=== PATIENT | male | born 1955 | race Caucasian/White ===

== ENCOUNTER 2017-02-07 11:12 | Emergency (ER) | payer MEDICARE, OTHER ==
--- NOTE | ~2017-02-07 | CR63 ---
[facility]. [facility] A Service of [facility] & [facility] RADIOLOGY TEXT RESULTS PATIENT: NOVA BUNN JR LOCATION: SED : 53 UNIT #: [id number] AGE: [address]: Marcel Rodriguez MD SEX: M ORDER DR: [id number] [place] [id number] E MR#: [id number] Acc #: [id number] NAME: NOVA BUNN JR : 1955 SEX: M STUDY DATE/TIME: 02/07/2017 11:47 UNIT: SED ROOM: STUDY DESCRIPTION: CR Chest 2 View Attending Physician: Marcel Rodriguez M.D. Ordering Physician: Marcel Rodriguez M.D. Primary Care Physician: No Primary Care Physician MEDICAL IMAGING REPORT This report is preliminary unless electronic signature is present. EXAM Two-view chest, 02/07/2017. HISTORY Chest pain for 3 days. COMPARISON Chest, 06/29/2010. FINDINGS 2 views of the chest demonstrates clear lungs. No pleural effusion or pneumothorax. Heart size and mediastinum normal. Pulmonary vasculature normal. IMPRESSION Emphysema. No other acute chest findings. Dictated by... Hardy Kuhn M.D. THIS IS AN ELECTRONICALLY VERIFIED REPORT Hardy Kuhn M.D. at 02/08/2017 8:56 AM [email or web address]/[email or web address] TD: 02/07/2017 12:48 JOB #: [id number] MEDICAL IMAGING REPORT Page 1 of 1
[~2017-02-07 11:12] MED LIST: AMOXICILLIN875 MG PO; ANTIVERT PO; ASPIRIN PO; AUGMENTIN PO; BACITRACIN30 GM TOP; CORTISPORIN-TC10 M1 AU; LIPITOR PO; LISINOPRIL10 MG PO; NEXIUM PO; PLAVIX PO; TYLENOL #3 PO; VOLTAREN75 MG PO
== END 2017-02-07 13:35 | disposition home or self-care (01) ==
LOC: SED 11:12
DX: S20.212A Contusion of left front wall of thorax, initial encounter (principal); S20.211A Contusion of right front wall of thorax, initial encounter; W22.8XXA Striking against or struck by other objects, initial encounter; K21.9 Gastro-esophageal reflux disease without esophagitis; Z88.8 Allergy status to other drugs, medicaments and biological substances; F17.210 Nicotine dependence, cigarettes, uncomplicated; Y92.009 Unspecified place in unspecified non-institutional (private) residence as the place of occurrence of the external cause
CPT/HCPCS: 71020; 94640; 99283